=== PATIENT | female | born 1990 | race Caucasian/White ===

== ENCOUNTER 2021-09-13 10:42 | Inpatient (IN) ==
[2021-09-13] MEDS ORDERED: PENICILLIN G POTASSIUM 6 MU in DEXTROSE 5% 250 ML IV STA (11:51)
[2021-09-13] MEDS ORDERED: OXYTOCIN 30 UNITS/500 ML BAG IV PRN ×2 (11:51→21:40)
[2021-09-13 12:13] LABS: Hematocrit (blood only) 35.2 % (37-47); Hemoglobin 11.4 g/dL (12.0-16.0); Mean Corpuscular Hemoglobin 25.7 pg (25-34); Mean Corpuscular Hgb Conc 32.4 g/dL (32-36); Mean Corpuscular Volume 79.3 fL (80-100); Nucleated RBC # (auto) 0.02 K/uL (0-0); Nucleated RBC % (auto) 0.1 %; Platelet Count 281 K/uL (130-400); RDW Standard Deviation 51.6 fL (36.4-46.3); Red Blood Count 4.44 M/uL (4.2-5.4); White Blood Count 13.41 K/uL (4.8-10.8)
[2021-09-13] MEDS: LACTATED RINGER'S 1,000 ML IV PRN ×2 (17:38→18:56)
[2021-09-13] MEDS ORDERED: BUTORPHANOL TARTRATE 1 MG/ML VIAL IV ONE (18:00)
[2021-09-13] MEDS ORDERED: BUTORPHANOL TARTRATE 1 MG/ML VIAL ONE (18:05)
[2021-09-13] MEDS ORDERED: NALOXONE HCL 1 MG in SODIUM CHLORIDE 0.9% 1000ML 1,000 ML IV PRN (18:22)
[2021-09-13] MEDS ORDERED: ePHEDrine sulfate 50 MG/ML AMP IV PRN (18:22)
[2021-09-13] MEDS ORDERED: NALOXONE HCL 0.4 MG/1 ML VIAL/CARP IV PRN (18:22)
[2021-09-13] MEDS ORDERED: ONDANSETRON INJ 2 MG/ML 2 ML VIAL IV PRN ×2 (18:22→21:40)
[2021-09-13] MEDS ORDERED: diphenhydrAMINE 50 MG/ML VIAL IV PRN (18:22)
[2021-09-13] MEDS ORDERED: NALBUPHINE HCL INJ 10 MG/ML AMP IV PRN (18:22)
--- NOTE | 2021-09-13 18:24 | Anesthesiology Consultation ---
Date of Service September 13, 2021 Assessment & Plan (1) Encounter for pre-operative examination: Chart Review Chart Review: Patient NOT seen in Pre Admission Testing and Acceptable Risk for Labor Epidural Consults Requested none History Height/Weight Height: 5 ft 6 in Weight: 87.5 kg Allergies Allergy/AdvReac Type Severity Reaction Status Date / Time No Known Allergies Allergy Mild Verified 09/13/21 12:51 Medications Home Medications Medication Instructions Recorded Confirmed Last Taken acetaminophen 500 mg tablet 1,000 mg PO Q6H PRN 08/14/21 09/13/21 08/14/21 10:00 (Tylenol Extra Strength) 1000 mg ascorbic acid (vitamin C) 250 mg 250 mg PO QAM 08/14/21 09/13/21 2 Days Ago chewable tablet ~09/11/21 ferrous sulfate 325 mg (65 mg 325 mg PO QAM 08/14/21 09/13/21 09/11/21 21:00 iron) tablet #2 1 mg PO HS 09/13/21 09/13/21 09/11/21 21:00 Active Medications Generic Name Dose Route Start Last Admin Trade Name Freq PRN Reason Stop Dose Admin Lactated Ringer's 1,000 mls @ 125 mls/hr 09/13/21 11:51 09/13/21 17:51 Lr IV 09/15/21 11:50 999 mls/hr .Q8H PRN Infusion L&D Protocol Protocol Past Medical History Medical History Anemia No significant medical problems Past Family History Family History Grandfather (Paternal) Leukemia Grandmother (Maternal) Cancer Grandfather (Maternal) Cancer Past Surgical History Surgical History No history of previous surgery Social History Smoking Status: Never smoker Hx Alcohol Use: Yes Hx Substance Use: No Physical Exam Vital Signs Last Vital Signs Temp 36.5 C 09/13/21 18:10 Pulse 109 H 09/13/21 14:09 Resp 18 09/13/21 18:10 BP 124/78 09/13/21 14:09 Testing Laboratory Results 09/13/21 12:03
--- NOTE | 2021-09-13 19:02 | History & Physical Report ---
Date of Service September 13, 2021 Assessment & Plan (1) : Plan: Planning for epidural anticipate normal delivery Admission and Anticipated Discharge Date Admission Date: September 13, 2021 History of Present Illness Chief Complaint: Spontaneous rupture of membranes at term in labor Primary Care Provider: LINDA PCP 31 F P0000 at 40.6 weeks admitted with SROM and early labor. GBS is positive. Covid was positive 08/24/21. Allergies Allergy/AdvReac Type Severity Reaction Status Date / Time No Known Allergies Allergy Mild Verified 09/13/21 12:51 Home Medications Medication Instructions Recorded Confirmed Type acetaminophen 500 mg tablet 1,000 mg PO Q6H PRN 08/14/21 09/13/21 History (Tylenol Extra Strength) ascorbic acid (vitamin C) 250 mg 250 mg PO QAM 08/14/21 09/13/21 History chewable tablet ferrous sulfate 325 mg (65 mg 325 mg PO QAM 08/14/21 09/13/21 History iron) tablet #2 1 mg PO HS 09/13/21 09/13/21 History Patient History Medical History Anemia No significant medical problems Surgical History No history of previous surgery Family History Grandfather (Paternal) Leukemia Grandmother (Maternal) Cancer Grandfather (Maternal) Cancer Social History Smoking Status: Never smoker Hx Alcohol Use: Yes Hx Substance Use: No Preferred Language: Malay Communication Ability: Effective Visual Impairment: No Limitations Hearing Ability: Normal 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 Beliefs That Will Affect Care: None marital status: Current Living Situation: Spouse Current Living Situation Comment: Nik Other Information That Helps Us Care for You: No Feels Safe at Home: Yes Safety Concerns: Feels Safe At This Time Assistive Devices: None 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 Review of Systems All systems reviewed & are unremarkable except as noted in HPI & below Physical Exam Constitutional: WD/WN, vitals as above Eyes: PERRL, conjunctivae normal, anicteric sclerae Respiratory: normal respiratory effort, lungs clear to auscultation Cardiovascular: RRR, no murmur, no edema Skin: no rashes, warm and dry Neurologic: patellar DTR's 2+ bilat, sensation intact Psychiatric: A+Ox3, euthymic affect Genitourinary: Manual OB Exam: + cervical dilation 3 cm, + cervical effacement 70% and + station -2 OB Exam Monitor Tracing: + external FHT monitor used, + external uterine monitor used, + category I and + normal FHT variability Results & Data ([facility]) Vital Signs (Past 12 Hours) Vital Signs Temp Pulse Resp BP 09/13/21 18:10 36.5 C 18 09/13/21 16:00 36.8 C 18 09/13/21 14:09 36.5 C 109 H 20 124/78 09/13/21 11:04 115 H 135/88 09/13/21 10:53 36.5 C 118 H 18 144/95 H Laboratory Results Laboratory Results - last 72 hr 09/13/21 12:03 WBC 13.41 H RBC 4.44 Hgb 11.4 L Hct 35.2 L MCV 79.3 L MCH 25.7 MCHC 32.4 RDW Std Deviation 51.6 H RDW Coeff of Kimmy 18.0 H Plt Count 281 MPV 10.0 Absolute Nucleated RBC 0.02 H Nucleated RBC % (auto) 0.1
[2021-09-13] MEDS ORDERED: SODIUM CHLORIDE 0.9% INJ 10 ML VIAL ONE (19:25)
[2021-09-13] MEDS ORDERED: ePHEDrine sulfate 50 MG/ML AMP ONE (19:25)
[2021-09-13] MEDS ORDERED: fentaNYL 2MCG/ML ROPIVACAINE 1.25MG/ML 100 ML BAG EPI ONE (19:26)
[2021-09-13] MEDS ORDERED: fentaNYL citrate 100 MCG/2 ML VIAL ONE (19:26)
[2021-09-13] MEDS ORDERED: BUPIVACAINE 0.25% 30 ML VIAL ONE (19:26)
[2021-09-13] MEDS: fentaNYL 2MCG/ML ROPIVACAINE 1.25MG/ML 100 ML BAG EPI PRN (19:26)
[2021-09-13] MEDS: PENICILLIN G POTASSIUM 3 MU in DEXTROSE 5% 100 ML IV PRN (22:07)
[2021-09-14] MEDS: PENICILLIN G POTASSIUM 3 MU in DEXTROSE 5% 100 ML IV PRN ×3 (02:12→11:20)
[2021-09-14] MEDS: LACTATED RINGER'S 1,000 ML IV PRN ×3 (03:00→12:32)
[2021-09-14] MEDS: fentaNYL 2MCG/ML ROPIVACAINE 1.25MG/ML 100 ML BAG EPI PRN ×2 (04:16→10:04)
--- NOTE | 2021-09-14 06:59 | Labor Progress Brief Note ---
Date of Service September 14, 2021 Assessment & Plan Admission and Anticipated Discharge Date Admission Date: September 13, 2021 Physical Exam Genitourinary: Manual OB Exam: + cervical dilation 8 cm and 9 cm, + cervical effacement 100%, + station 0 and + amniotic fluid clear OB Exam Monitor Tracing: + external FHT monitor used, + external uterine monitor used, + category I and + normal FHT variability Results & Data ([facility]) Vital Signs (Past 12 Hours) Vital Signs Temp Pulse Resp BP Pulse Ox 09/14/21 06:56 130 H 93 09/14/21 06:55 127 H 120/78 09/14/21 06:53 115 H 94 09/14/21 06:48 116 H 98 09/14/21 06:43 107 H 97 09/14/21 06:40 114 H 109/59 L 09/14/21 06:39 114 H 93 09/14/21 06:38 107 H 95 09/14/21 06:33 108 H 97 09/14/21 06:28 112 H 98 09/14/21 06:24 102 H 113/60 09/14/21 06:23 106 H 97 09/14/21 06:18 126 H 95 09/14/21 06:15 123 H 92 09/14/21 06:13 134 H 93 09/14/21 06:08 117 H 133/79 94 09/14/21 06:04 95 H 92 09/14/21 06:03 105 H 94 09/14/21 05:58 94 H 92 09/14/21 05:53 100 H 121/69 92 09/14/21 05:48 98 H 93 09/14/21 05:43 93 H 92 09/14/21 05:39 109 H 94 09/14/21 05:38 109 H 115/67 95 09/14/21 05:33 101 H 93 09/14/21 05:32 18 09/14/21 05:28 111 H 93 09/14/21 05:24 94 H 122/72 93 09/14/21 05:23 94 H 93 09/14/21 05:18 112 H 96 09/14/21 05:13 120 H 95 09/14/21 05:10 116 H 110/60 09/14/21 05:08 124 H 90 09/14/21 05:03 125 H 92 09/14/21 05:01 120 H 93 09/14/21 04:58 124 H 94 09/14/21 04:55 131 H 18 94 09/14/21 04:53 116 H 130/67 94 09/14/21 04:51 127 H 115/64 09/14/21 04:50 125 H 94 09/14/21 04:49 126 H 125/68 09/14/21 04:48 131 H 93 09/14/21 04:47 133 H 115/59 L 09/14/21 04:45 127 H 153/81 H 09/14/21 04:43 130 H 150/85 H 93 09/14/21 04:41 120 H 151/84 H 09/14/21 04:40 132 H 94 09/14/21 04:39 133 H 146/83 H 09/14/21 04:38 124 H 92 09/14/21 04:37 122 H 151/81 H 09/14/21 04:35 121 H 139/74 09/14/21 04:33 120 H 151/83 H 92 09/14/21 04:28 123 H 94 09/14/21 04:25 122 H 148/77 H 09/14/21 04:23 37.2 C 127 H 18 94 09/14/21 04:22 118 H 94 09/14/21 04:18 125 H 93 09/14/21 04:13 124 H 93 09/14/21 04:11 129 H 148/87 H 09/14/21 04:08 126 H 96 09/14/21 04:03 122 H 92 09/14/21 04:02 132 H 94 09/14/21 03:58 106 H 93 09/14/21 03:57 107 H 94 09/14/21 03:56 107 H 135/82 09/14/21 03:53 104 H 93 09/14/21 03:48 112 H 93 09/14/21 03:43 104 H 93 09/14/21 03:40 111 H 132/83 09/14/21 03:38 101 H 92 09/14/21 03:33 115 H 93 09/14/21 03:28 106 H 93 09/14/21 03:25 115 H 129/72 09/14/21 03:23 114 H 92 09/14/21 03:18 119 H 92 09/14/21 03:13 116 H 96 09/14/21 03:12 107 H 94 09/14/21 03:10 115 H 135/82 09/14/21 03:08 133 H 94 09/14/21 03:07 138 H 93 09/14/21 03:03 106 H 92 09/14/21 02:58 104 H 95 09/14/21 02:56 108 H 137/80 09/14/21 02:53 129 H 95 09/14/21 02:50 131 H 92 09/14/21 02:48 107 H 96 09/14/21 02:43 116 H 96 09/14/21 02:40 121 H 137/73 09/14/21 02:39 123 H 94 09/14/21 02:38 124 H 94 09/14/21 02:33 133 H 94 09/14/21 02:30 37.0 C 18 09/14/21 02:28 94 H 96 09/14/21 02:26 93 H 120/60 09/14/21 02:23 108 H 97 09/14/21 02:19 99 H 94 09/14/21 02:18 101 H 95 09/14/21 02:13 115 H 96 09/14/21 02:11 130 H 120/59 L 09/14/21 02:08 101 H 96 09/14/21 02:03 110 H 96 09/14/21 01:58 102 H 96 09/14/21 01:55 116 H 119/69 09/14/21 01:53 109 H 98 09/14/21 01:48 123 H 95 09/14/21 01:43 141 H 95 09/14/21 01:41 110 H 137/66 09/14/21 01:39 114 H 94 09/14/21 01:38 108 H 95 09/14/21 01:33 122 H 100 09/14/21 01:29 18 09/14/21 01:28 118 H 100 09/14/21 01:25 109 H 122/64 09/14/21 01:23 114 H 96 09/14/21 01:18 103 H 98 09/14/21 01:16 104 H 94 09/14/21 01:13 110 H 91 09/14/21 01:11 110 H 94 09/14/21 01:10 96 H 121/62 09/14/21 01:08 100 H 99 09/14/21 01:03 108 H 95 09/14/21 00:58 99 H 96 09/14/21 00:57 107 H 94 09/14/21 00:55 36.7 C 93 H 18 133/74 09/14/21 00:53 107 H 94 09/14/21 00:51 104 H 92 09/14/21 00:48 87 92 09/14/21 00:43 88 92 09/14/21 00:41 86 125/73 09/14/21 00:38 94 H 92 09/14/21 00:33 91 H 92 09/14/21 00:28 87 92 09/14/21 00:25 100 H 121/75 09/14/21 00:23 88 92 09/14/21 00:18 98 H 93 09/14/21 00:17 107 H 92 09/14/21 00:13 96 H 91 09/14/21 00:10 98 H 134/82 09/14/21 00:08 92 H 92 09/14/21 00:07 105 H 94 09/14/21 00:03 96 H 93 09/13/21 23:59 108 H 93 09/13/21 23:58 104 H 95 09/13/21 23:56 93 H 132/80 09/13/21 23:53 96 H 91 09/13/21 23:48 90 91 09/13/21 23:43 100 H 93 09/13/21 23:40 100 H 135/84 09/13/21 23:38 103 H 94 09/13/21 23:37 97 H 94 09/13/21 23:33 86 93 09/13/21 23:31 96 H 94 09/13/21 23:29 18 09/13/21 23:28 90 91 09/13/21 23:25 100 H 125/75 09/13/21 23:23 86 94 09/13/21 23:22 86 94 09/13/21 23:18 88 93 09/13/21 23:13 82 93 09/13/21 23:10 89 129/76 09/13/21 23:08 83 93 09/13/21 23:03 87 92 09/13/21 22:58 91 H 92 09/13/21 22:56 37.2 C 108 H 18 92 09/13/21 22:55 104 H 124/72 09/13/21 22:53 88 93 09/13/21 22:48 97 H 93 09/13/21 22:43 94 H 93 09/13/21 22:41 90 129/77 09/13/21 22:38 100 H 93 09/13/21 22:36 102 H 94 09/13/21 22:33 101 H 94 09/13/21 22:31 98 H 94 09/13/21 22:28 103 H 93 09/13/21 22:25 109 H 128/86 94 09/13/21 22:23 108 H 94 09/13/21 22:20 18 09/13/21 22:18 110 H 94 09/13/21 22:13 94 H 94 09/13/21 22:12 88 128/75 09/13/21 22:10 95 H 133/86 09/13/21 22:08 104 H 93 09/13/21 22:07 95 H 94 09/13/21 22:03 91 H 93 09/13/21 22:00 107 H 93 09/13/21 21:58 115 H 92 09/13/21 21:56 122 H 129/74 09/13/21 21:53 111 H 94 09/13/21 21:48 109 H 96 09/13/21 21:47 112 H 94 09/13/21 21:43 120 H 94 09/13/21 21:42 134 H 94 09/13/21 21:41 131 H 151/96 H 09/13/21 21:38 110 H 93 09/13/21 21:36 91 H 94 09/13/21 21:33 99 H 95 09/13/21 21:30 85 94 09/13/21 21:28 104 H 95 09/13/21 21:25 90 118/71 09/13/21 21:23 87 93 09/13/21 21:18 37.0 C 84 18 93 09/13/21 21:17 86 94 09/13/21 21:13 97 H 93 09/13/21 21:11 93 H 126/73 09/13/21 21:10 104 H 94 09/13/21 21:08 106 H 96 09/13/21 21:03 92 H 95 09/13/21 21:01 18 09/13/21 20:58 109 H 96 09/13/21 20:56 118 H 93 09/13/21 20:55 89 137/79 09/13/21 20:53 101 H 96 09/13/21 20:48 108 H 94 09/13/21 20:43 117 H 96 09/13/21 20:40 122 H 141/80 H 09/13/21 20:38 125 H 99 09/13/21 20:33 97 H 99 09/13/21 20:30 115 H 18 93 09/13/21 20:28 94 H 99 09/13/21 20:25 110 H 119/74 09/13/21 20:23 96 H 99 09/13/21 20:20 96 H 94 09/13/21 20:18 115 H 97 09/13/21 20:15 105 H 87 L 09/13/21 20:13 112 H 99 09/13/21 20:12 95 H 110/70 09/13/21 20:10 93 H 90 09/13/21 20:08 89 97 09/13/21 20:03 105 H 96 09/13/21 20:00 102 H 91 09/13/21 19:58 98 H 96 09/13/21 19:53 111 H 117/73 92 09/13/21 19:52 106 H 121/86 09/13/21 19:49 88 121/72 09/13/21 19:48 105 H 94 09/13/21 19:47 113 H 117/70 94 09/13/21 19:45 88 18 114/71 09/13/21 19:43 117 H 107/65 97 09/13/21 19:42 114 H 105/71 09/13/21 19:40 117 H 18 94 09/13/21 19:39 98 H 117/78 09/13/21 19:38 112 H 96 09/13/21 19:37 109 H 117/73 09/13/21 19:36 96 H 118/71 09/13/21 19:35 102 H 18 93 09/13/21 19:34 96 H 103/56 L 09/13/21 19:33 102 H 94 09/13/21 19:31 113 H 111/62 09/13/21 19:30 112 H 18 83/45 L 93 09/13/21 19:28 127 H 102/53 L 97 09/13/21 19:26 112 H 140/89 09/13/21 19:24 104 H 129/80 09/13/21 19:23 105 H 97 09/13/21 19:18 123 H 98 09/13/21 19:13 120 H 97 09/13/21 19:09 36.5 C 118 H 18 92 09/13/21 19:08 107 H 96 09/13/21 19:03 138 H 96
--- NOTE | 2021-09-14 07:51 | Obstetrical Progress Note ---
Date of Service September 14, 2021 Assessment & Plan Admission and Anticipated Discharge Date Admission Date: September 13, 2021 Subjective Patient is seen and examined. I reviewed her medical records from office and confirmed with her. She is a 31-year-old at 41 weeks of gestation who was scheduled for induction of labor for today but presented to labor and delivery yesterday with spontaneous rupture of membranes. She was started on Pitocin and received epidural for pain. Her has been uncomplicated except she had COVID 19 about 4 weeks ago recovered well. She is GBS positive. She denies any other medical problems, denies smoking, alcohol or drug use. She denies history of STDs, no history of herpes, chlamydia, gonorrhea. She has been feeling painful for the last half an hour or so and epidural push button has not helped. I checked her her cervix is 8 cm dilated, 90% effaced, 0 station. heart rate category 1, toco registered 3 contractions [id number]. We decrease Pitocin from 8 to 4 mIU/min. Continue to monitor closely and consult anesthesia for pain control. Results & Data ([facility]) Vital Signs (Past 12 Hours) Vital Signs Temp Pulse Resp BP Pulse Ox 09/14/21 07:43 129 H 92 09/14/21 07:39 133 H 144/66 H 09/14/21 07:38 129 H 93 09/14/21 07:37 118 H 93 09/14/21 07:33 142 H 94 09/14/21 07:28 120 H 95 09/14/21 07:25 140 H 94 09/14/21 07:23 130 H 96 09/14/21 07:20 120 H 94 09/14/21 07:18 117 H 94 09/14/21 07:15 114 H 93 09/14/21 07:13 111 H 95 09/14/21 07:10 108 H 108/55 L 09/14/21 07:08 111 H 94 09/14/21 07:03 113 H 96 09/14/21 07:00 36.7 C 18 09/14/21 06:58 116 H 98 09/14/21 06:56 130 H 93 09/14/21 06:55 127 H 120/78 09/14/21 06:53 115 H 94 09/14/21 06:48 116 H 98 09/14/21 06:43 107 H 97 09/14/21 06:40 114 H 109/59 L 09/14/21 06:39 114 H 93 09/14/21 06:38 107 H 95 09/14/21 06:33 108 H 97 09/14/21 06:28 112 H 98 09/14/21 06:24 102 H 113/60 09/14/21 06:23 106 H 97 09/14/21 06:18 126 H 95 09/14/21 06:15 123 H 92 09/14/21 06:13 134 H 93 09/14/21 06:08 117 H 133/79 94 09/14/21 06:04 95 H 92 09/14/21 06:03 105 H 94 09/14/21 05:58 94 H 92 09/14/21 05:53 100 H 121/69 92 09/14/21 05:48 98 H 93 09/14/21 05:43 93 H 92 09/14/21 05:39 109 H 94 09/14/21 05:38 109 H 115/67 95 09/14/21 05:33 101 H 93 09/14/21 05:32 18 09/14/21 05:28 111 H 93 09/14/21 05:24 94 H 122/72 93 09/14/21 05:23 94 H 93 09/14/21 05:18 112 H 96 09/14/21 05:13 120 H 95 09/14/21 05:10 116 H 110/60 09/14/21 05:08 124 H 90 09/14/21 05:03 125 H 92 09/14/21 05:01 120 H 93 09/14/21 04:58 124 H 94 09/14/21 04:55 131 H 18 94 09/14/21 04:53 116 H 130/67 94 09/14/21 04:51 127 H 115/64 09/14/21 04:50 125 H 94 09/14/21 04:49 126 H 125/68 09/14/21 04:48 131 H 93 09/14/21 04:47 133 H 115/59 L 09/14/21 04:45 127 H 153/81 H 09/14/21 04:43 130 H 150/85 H 93 09/14/21 04:41 120 H 151/84 H 09/14/21 04:40 132 H 94 09/14/21 04:39 133 H 146/83 H 09/14/21 04:38 124 H 92 09/14/21 04:37 122 H 151/81 H 09/14/21 04:35 121 H 139/74 09/14/21 04:33 120 H 151/83 H 92 09/14/21 04:28 123 H 94 09/14/21 04:25 122 H 148/77 H 09/14/21 04:23 37.2 C 127 H 18 94 09/14/21 04:22 118 H 94 09/14/21 04:18 125 H 93 09/14/21 04:13 124 H 93 09/14/21 04:11 129 H 148/87 H 09/14/21 04:08 126 H 96 09/14/21 04:03 122 H 92 09/14/21 04:02 132 H 94 09/14/21 03:58 106 H 93 09/14/21 03:57 107 H 94 09/14/21 03:56 107 H 135/82 09/14/21 03:53 104 H 93 09/14/21 03:48 112 H 93 09/14/21 03:43 104 H 93 09/14/21 03:40 111 H 132/83 09/14/21 03:38 101 H 92 09/14/21 03:33 115 H 93 09/14/21 03:28 106 H 93 09/14/21 03:25 115 H 129/72 09/14/21 03:23 114 H 92 09/14/21 03:18 119 H 92 09/14/21 03:13 116 H 96 09/14/21 03:12 107 H 94 09/14/21 03:10 115 H 135/82 09/14/21 03:08 133 H 94 09/14/21 03:07 138 H 93 09/14/21 03:03 106 H 92 09/14/21 02:58 104 H 95 09/14/21 02:56 108 H 137/80 09/14/21 02:53 129 H 95 09/14/21 02:50 131 H 92 09/14/21 02:48 107 H 96 09/14/21 02:43 116 H 96 09/14/21 02:40 121 H 137/73 09/14/21 02:39 123 H 94 09/14/21 02:38 124 H 94 09/14/21 02:33 133 H 94 09/14/21 02:30 37.0 C 18 09/14/21 02:28 94 H 96 09/14/21 02:26 93 H 120/60 09/14/21 02:23 108 H 97 09/14/21 02:19 99 H 94 09/14/21 02:18 101 H 95 09/14/21 02:13 115 H 96 09/14/21 02:11 130 H 120/59 L 09/14/21 02:08 101 H 96 09/14/21 02:03 110 H 96 09/14/21 01:58 102 H 96 09/14/21 01:55 116 H 119/69 09/14/21 01:53 109 H 98 09/14/21 01:48 123 H 95 09/14/21 01:43 141 H 95 09/14/21 01:41 110 H 137/66 09/14/21 01:39 114 H 94 09/14/21 01:38 108 H 95 09/14/21 01:33 122 H 100 09/14/21 01:29 18 09/14/21 01:28 118 H 100 09/14/21 01:25 109 H 122/64 09/14/21 01:23 114 H 96 09/14/21 01:18 103 H 98 09/14/21 01:16 104 H 94 09/14/21 01:13 110 H 91 09/14/21 01:11 110 H 94 09/14/21 01:10 96 H 121/62 09/14/21 01:08 100 H 99 09/14/21 01:03 108 H 95 09/14/21 00:58 99 H 96 09/14/21 00:57 107 H 94 09/14/21 00:55 36.7 C 93 H 18 133/74 09/14/21 00:53 107 H 94 09/14/21 00:51 104 H 92 09/14/21 00:48 87 92 09/14/21 00:43 88 92 09/14/21 00:41 86 125/73 09/14/21 00:38 94 H 92 09/14/21 00:33 91 H 92 09/14/21 00:28 87 92 09/14/21 00:25 100 H 121/75 09/14/21 00:23 88 92 09/14/21 00:18 98 H 93 09/14/21 00:17 107 H 92 09/14/21 00:13 96 H 91 09/14/21 00:10 98 H 134/82 09/14/21 00:08 92 H 92 09/14/21 00:07 105 H 94 09/14/21 00:03 96 H 93 09/13/21 23:59 108 H 93 09/13/21 23:58 104 H 95 09/13/21 23:56 93 H 132/80 09/13/21 23:53 96 H 91 09/13/21 23:48 90 91 09/13/21 23:43 100 H 93 09/13/21 23:40 100 H 135/84 09/13/21 23:38 103 H 94 09/13/21 23:37 97 H 94 09/13/21 23:33 86 93 09/13/21 23:31 96 H 94 09/13/21 23:29 18 09/13/21 23:28 90 91 09/13/21 23:25 100 H 125/75 09/13/21 23:23 86 94 09/13/21 23:22 86 94 09/13/21 23:18 88 93 09/13/21 23:13 82 93 09/13/21 23:10 89 129/76 09/13/21 23:08 83 93 09/13/21 23:03 87 92 09/13/21 22:58 91 H 92 09/13/21 22:56 37.2 C 108 H 18 92 09/13/21 22:55 104 H 124/72 09/13/21 22:53 88 93 09/13/21 22:48 97 H 93 09/13/21 22:43 94 H 93 09/13/21 22:41 90 129/77 09/13/21 22:38 100 H 93 09/13/21 22:36 102 H 94 09/13/21 22:33 101 H 94 09/13/21 22:31 98 H 94 09/13/21 22:28 103 H 93 09/13/21 22:25 109 H 128/86 94 09/13/21 22:23 108 H 94 09/13/21 22:20 18 09/13/21 22:18 110 H 94 09/13/21 22:13 94 H 94 09/13/21 22:12 88 128/75 09/13/21 22:10 95 H 133/86 09/13/21 22:08 104 H 93 09/13/21 22:07 95 H 94 09/13/21 22:03 91 H 93 09/13/21 22:00 107 H 93 09/13/21 21:58 115 H 92 09/13/21 21:56 122 H 129/74 09/13/21 21:53 111 H 94 09/13/21 21:48 109 H 96 09/13/21 21:47 112 H 94 09/13/21 21:43 120 H 94 09/13/21 21:42 134 H 94 09/13/21 21:41 131 H 151/96 H 09/13/21 21:38 110 H 93 09/13/21 21:36 91 H 94 09/13/21 21:33 99 H 95 09/13/21 21:30 85 94 09/13/21 21:28 104 H 95 09/13/21 21:25 90 118/71 09/13/21 21:23 87 93 09/13/21 21:18 37.0 C 84 18 93 09/13/21 21:17 86 94 09/13/21 21:13 97 H 93 09/13/21 21:11 93 H 126/73 09/13/21 21:10 104 H 94 09/13/21 21:08 106 H 96 09/13/21 21:03 92 H 95 09/13/21 21:01 18 09/13/21 20:58 109 H 96 09/13/21 20:56 118 H 93 09/13/21 20:55 89 137/79 09/13/21 20:53 101 H 96 09/13/21 20:48 108 H 94 09/13/21 20:43 117 H 96 09/13/21 20:40 122 H 141/80 H 09/13/21 20:38 125 H 99 09/13/21 20:33 97 H 99 09/13/21 20:30 115 H 18 93 09/13/21 20:28 94 H 99 09/13/21 20:25 110 H 119/74 09/13/21 20:23 96 H 99 09/13/21 20:20 96 H 94 01/16/22 20:18 115 H 97 09/13/21 20:15 105 H 87 L 09/13/21 20:13 112 H 99 09/13/21 20:12 95 H 110/70 09/13/21 20:10 93 H 90 09/13/21 20:08 89 97 09/13/21 20:03 105 H 96 09/13/21 20:00 102 H 91 09/13/21 19:58 98 H 96 09/13/21 19:53 111 H 117/73 92 09/13/21 19:52 106 H 121/86 09/13/21 19:49 88 121/72
[2021-09-14] MEDS ORDERED: Nursing to Pharmacy Communication SCH (08:00)
[2021-09-14] MEDS ORDERED: BUPIVACAINE 0.25% 30 ML VIAL ONE (08:08)
[2021-09-14] MEDS ORDERED: fentaNYL citrate 100 MCG/2 ML VIAL ONE (08:08)
--- NOTE | 2021-09-14 11:55 | Obstetrical Progress Note ---
Date of Service September 14, 2021 Assessment & Plan Admission and Anticipated Discharge Date Admission Date: September 13, 2021 Subjective Late entry from 11:20 AM. Patient is seen and examined. She received bolus from epidural and was comfortable for about 12 hours and then started to have pain again. She is tearful with contractions and feels all vaginal exam. heart rate had been category 1, Pitocin was increased to 5 but patient is refusing to increase more due to pain, Cervix is unchanged, still 8 cm, 80% effaced, and there is a swollen polyp at anterior lip at about 11 o'clock position, patient has history of cervical polyp and it seems like swollen due to labor, about 2 x centimeter in size, head is at 0 station. Cervix is unchanged since 5 AM when it was found to be 8 cm dilated, unchanged from my last exam as well. Bedside ultrasound is performed and baby is in occiput anterior position, unable to estimate weight due to had been in the pelvis and unable to measure BPD. Patient is worried about large baby and not sure she wants to try labor again. She is asking for . We discussed is a major surgery with increased risk of bleeding, infection, injury to surrounding organs, increased risk of blood clots in legs and lungs and longer recovery. I gave her the option of calling anesthesiology for repeat epidural and then increase Pitocin for trial of vaginal . Patient wants to discuss with her mom and then decide. Shins were answered. Results & Data ([facility]) Vital Signs (Past 12 Hours) Vital Signs Temp Pulse Resp BP Pulse Ox 09/14/21 11:48 126 H 100 09/14/21 11:43 122 H 100 09/14/21 11:38 118 H 113/56 L 98 09/14/21 11:33 133 H 99 09/14/21 11:28 129 H 99 09/14/21 11:26 142 H 93 09/14/21 11:23 126 H 98 09/14/21 11:22 137 H 102/53 L 09/14/21 11:21 147 H 94 09/14/21 11:18 128 H 93 09/14/21 11:16 164 H 94 09/14/21 11:13 155 H 98 09/14/21 11:10 129 H 94 09/14/21 11:08 148 H 108/54 L 91 09/14/21 11:05 129 H 93 09/14/21 11:03 139 H 94 09/14/21 10:59 137 H 93 09/14/21 10:58 150 H 91 09/14/21 10:53 137 H 94 09/14/21 10:51 126 H 108/52 L 09/14/21 10:48 139 H 94 09/14/21 10:47 137 H 93 09/14/21 10:43 122 H 92 09/14/21 10:42 129 H 94 09/14/21 10:38 125 H 113/55 L 93 09/14/21 10:36 133 H 93 09/14/21 10:33 121 H 93 09/14/21 10:28 116 H 91 09/14/21 10:23 124 H 93 09/14/21 10:21 127 H 98/50 L 09/14/21 10:18 126 H 93 09/14/21 10:16 131 H 94 09/14/21 10:13 131 H 93 09/14/21 10:10 135 H 94 09/14/21 10:08 134 H 93 09/14/21 10:06 129 H 105/57 L 09/14/21 10:03 135 H 94 09/14/21 09:59 120 H 92 09/14/21 09:58 135 H 93 09/14/21 09:53 121 H 93 09/14/21 09:51 121 H 113/56 L 09/14/21 09:48 121 H 90 09/14/21 09:43 123 H 90 09/14/21 09:38 124 H 90 09/14/21 09:37 112 H 114/58 L 09/14/21 09:33 139 H 92 09/14/21 09:28 127 H 77 L 09/14/21 09:23 132 H 91 09/14/21 09:22 131 H 96/55 L 09/14/21 09:18 125 H 91 09/14/21 09:13 134 H 92 09/14/21 09:09 134 H 94 09/14/21 09:08 138 H 105/55 L 94 09/14/21 09:03 140 H 92 09/14/21 09:02 133 H 93 09/14/21 08:58 135 H 94 09/14/21 08:53 114 H 90 09/14/21 08:52 120 H 107/54 L 09/14/21 08:48 121 H 92 09/14/21 08:43 123 H 96 09/14/21 08:38 120 H 91 09/14/21 08:37 125 H 119/70 09/14/21 08:33 128 H 91 09/14/21 08:28 129 H 91 09/14/21 08:23 128 H 90 09/14/21 08:21 144 H 126/62 09/14/21 08:19 130 H 126/63 09/14/21 08:18 130 H 143/71 H 93 09/14/21 08:15 148 H 123/65 09/14/21 08:13 139 H 167/80 H 91 09/14/21 08:12 149 H 94 09/14/21 08:10 141 H 127/64 09/14/21 08:08 134 H 93 09/14/21 08:03 147 H 96 09/14/21 08:01 133 H 93 09/14/21 07:58 130 H 93 09/14/21 07:54 125 H 136/82 94 09/14/21 07:53 135 H 93 09/14/21 07:48 121 H 92 09/14/21 07:43 129 H 92 09/14/21 07:39 133 H 144/66 H 09/14/21 07:38 129 H 93 09/14/21 07:37 118 H 93 09/14/21 07:33 142 H 94 09/14/21 07:28 120 H 95 09/14/21 07:25 140 H 94 09/14/21 07:23 130 H 96 09/14/21 07:20 120 H 94 09/14/21 07:18 117 H 94 09/14/21 07:15 114 H 93 09/14/21 07:13 111 H 95 09/14/21 07:10 108 H 108/55 L 09/14/21 07:08 111 H 94 09/14/21 07:03 113 H 96 09/14/21 07:00 36.7 C 18 09/14/21 06:58 116 H 98 09/14/21 06:56 130 H 93 09/14/21 06:55 127 H 120/78 09/14/21 06:53 115 H 94 09/14/21 06:48 116 H 98 09/14/21 06:43 107 H 97 09/14/21 06:40 114 H 109/59 L 09/14/21 06:39 114 H 93 09/14/21 06:38 107 H 95 09/14/21 06:33 108 H 97 09/14/21 06:28 112 H 98 09/14/21 06:24 102 H 113/60 09/14/21 06:23 106 H 97 09/14/21 06:18 126 H 95 09/14/21 06:15 123 H 92 09/14/21 06:13 134 H 93 09/14/21 06:08 117 H 133/79 94 09/14/21 06:04 95 H 92 09/14/21 06:03 105 H 94 09/14/21 05:58 94 H 92 09/14/21 05:53 100 H 121/69 92 09/14/21 05:48 98 H 93 09/14/21 05:43 93 H 92 09/14/21 05:39 109 H 94 09/14/21 05:38 109 H 115/67 95 09/14/21 05:33 101 H 93 09/14/21 05:32 18 09/14/21 05:28 111 H 93 09/14/21 05:24 94 H 122/72 93 09/14/21 05:23 94 H 93 09/14/21 05:18 112 H 96 09/14/21 05:13 120 H 95 09/14/21 05:10 116 H 110/60 09/14/21 05:08 124 H 90 09/14/21 05:03 125 H 92 09/14/21 05:01 120 H 93 09/14/21 04:58 124 H 94 09/14/21 04:55 131 H 18 94 09/14/21 04:53 116 H 130/67 94 09/14/21 04:51 127 H 115/64 09/14/21 04:50 125 H 94 09/14/21 04:49 126 H 125/68 09/14/21 04:48 131 H 93 09/14/21 04:47 133 H 115/59 L 09/14/21 04:45 127 H 153/81 H 09/14/21 04:43 130 H 150/85 H 93 09/14/21 04:41 120 H 151/84 H 09/14/21 04:40 132 H 94 09/14/21 04:39 133 H 146/83 H 09/14/21 04:38 124 H 92 09/14/21 04:37 122 H 151/81 H 09/14/21 04:35 121 H 139/74 09/14/21 04:33 120 H 151/83 H 92 09/14/21 04:28 123 H 94 09/14/21 04:25 122 H 148/77 H 09/14/21 04:23 37.2 C 127 H 18 94 09/14/21 04:22 118 H 94 09/14/21 04:18 125 H 93 09/14/21 04:13 124 H 93 09/14/21 04:11 129 H 148/87 H 09/14/21 04:08 126 H 96 09/14/21 04:03 122 H 92 09/14/21 04:02 132 H 94 09/14/21 03:58 106 H 93 09/14/21 03:57 107 H 94 09/14/21 03:56 107 H 135/82 09/14/21 03:53 104 H 93 09/14/21 03:48 112 H 93 09/14/21 03:43 104 H 93 09/14/21 03:40 111 H 132/83 09/14/21 03:38 101 H 92 09/14/21 03:33 115 H 93 09/14/21 03:28 106 H 93 09/14/21 03:25 115 H 129/72 09/14/21 03:23 114 H 92 09/14/21 03:18 119 H 92 09/14/21 03:13 116 H 96 09/14/21 03:12 107 H 94 09/14/21 03:10 115 H 135/82 09/14/21 03:08 133 H 94 09/14/21 03:07 138 H 93 09/14/21 03:03 106 H 92 09/14/21 02:58 104 H 95 09/14/21 02:56 108 H 137/80 09/14/21 02:53 129 H 95 09/14/21 02:50 131 H 92 09/14/21 02:48 107 H 96 09/14/21 02:43 116 H 96 09/14/21 02:40 121 H 137/73 09/14/21 02:39 123 H 94 09/14/21 02:38 124 H 94 09/14/21 02:33 133 H 94 09/14/21 02:30 37.0 C 18 09/14/21 02:28 94 H 96 09/14/21 02:26 93 H 120/60 09/14/21 02:23 108 H 97 09/14/21 02:19 99 H 94 09/14/21 02:18 101 H 95 09/14/21 02:13 115 H 96 09/14/21 02:11 130 H 120/59 L 09/14/21 02:08 101 H 96 09/14/21 02:03 110 H 96 09/14/21 01:58 102 H 96 09/14/21 01:55 116 H 119/69 09/14/21 01:53 109 H 98 09/14/21 01:48 123 H 95 09/14/21 01:43 141 H 95 09/14/21 01:41 110 H 137/66 09/14/21 01:39 114 H 94 09/14/21 01:38 108 H 95 09/14/21 01:33 122 H 100 09/14/21 01:29 18 09/14/21 01:28 118 H 100 09/14/21 01:25 109 H 122/64 09/14/21 01:23 114 H 96 09/14/21 01:18 103 H 98 09/14/21 01:16 104 H 94 09/14/21 01:13 110 H 91 09/14/21 01:11 110 H 94 09/14/21 01:10 96 H 121/62 09/14/21 01:08 100 H 99 09/14/21 01:03 108 H 95 09/14/21 00:58 99 H 96 09/14/21 00:57 107 H 94 09/14/21 00:55 36.7 C 93 H 18 133/74 09/14/21 00:53 107 H 94 09/14/21 00:51 104 H 92 09/14/21 00:48 87 92 09/14/21 00:43 88 92 09/14/21 00:41 86 125/73 09/14/21 00:38 94 H 92 09/14/21 00:33 91 H 92 09/14/21 00:28 87 92 09/14/21 00:25 100 H 121/75 09/14/21 00:23 88 92 09/14/21 00:18 98 H 93 09/14/21 00:17 107 H 92 09/14/21 00:13 96 H 91 09/14/21 00:10 98 H 134/82 09/14/21 00:08 92 H 92 09/14/21 00:07 105 H 94 09/14/21 00:03 96 H 93 09/13/21 23:59 108 H 93 09/13/21 23:58 104 H 95 09/13/21 23:56 93 H 132/80 09/13/21 23:53 96 H 91
[2021-09-14] MEDS ORDERED: AZITHROMYCIN 500 MG in DEXTROSE 5% 250 ML IV STA (12:29)
[2021-09-14] MEDS ORDERED: LACTATED RINGER'S 1,000 ML IV SCH ×3 (12:30→14:45)
[2021-09-14] MEDS ORDERED: ONDANSETRON INJ 2 MG/ML 2 ML VIAL ONE (12:34)
[2021-09-14] MEDS ORDERED: MoRPHine SULFATE PF 1 MG/ML 10 ML AMP/VIAL ONE (12:34)
[2021-09-14] MEDS ORDERED: LIDOCAINE 2%/EPINEPHRINE 1:200,000 20 ML SDV ONE (12:34)
--- NOTE | 2021-09-14 12:35 | Obstetrical Progress Note ---
Date of Service September 14, 2021 Assessment & Plan Admission and Anticipated Discharge Date Admission Date: September 13, 2021 Subjective Patient has decided for primary . She declines trial of labor with increasing oxytocin and repeating epidural. She understands the risks of surgery and signed an informed consent. All questions were answered. Plan for preop orders with SCDs, preop antibiotics with cefazolin and azithromycin, type and screen. Patient already has Garner catheter placed during labor. Results & Data ([facility]) Vital Signs (Past 12 Hours) Vital Signs Temp Pulse Resp BP Pulse Ox 09/14/21 12:28 123 H 99 09/14/21 12:26 118 H 126/71 09/14/21 12:23 118 H 98 09/14/21 12:18 114 H 97 09/14/21 12:13 112 H 99 09/14/21 12:08 120 H 99/54 L 99 09/14/21 12:03 113 H 88 L 09/14/21 11:58 109 H 100 09/14/21 11:53 113 H 110/57 L 100 09/14/21 11:48 126 H 100 09/14/21 11:43 122 H 100 09/14/21 11:38 118 H 113/56 L 98 09/14/21 11:33 133 H 99 09/14/21 11:28 129 H 99 09/14/21 11:26 142 H 93 09/14/21 11:23 126 H 98 09/14/21 11:22 137 H 102/53 L 09/14/21 11:21 147 H 94 09/14/21 11:18 128 H 93 09/14/21 11:16 164 H 94 09/14/21 11:13 155 H 98 09/14/21 11:10 129 H 94 09/14/21 11:08 148 H 108/54 L 91 09/14/21 11:05 129 H 93 09/14/21 11:03 139 H 94 09/14/21 11:00 36.8 C 18 09/14/21 10:59 137 H 93 09/14/21 10:58 150 H 91 09/14/21 10:53 137 H 94 09/14/21 10:51 126 H 108/52 L 09/14/21 10:48 139 H 94 09/14/21 10:47 137 H 93 09/14/21 10:43 122 H 92 09/14/21 10:42 129 H 94 09/14/21 10:38 125 H 113/55 L 93 09/14/21 10:36 133 H 93 09/14/21 10:33 121 H 93 09/14/21 10:28 116 H 91 09/14/21 10:23 124 H 93 09/14/21 10:21 127 H 98/50 L 09/14/21 10:18 126 H 93 09/14/21 10:16 131 H 94 09/14/21 10:13 131 H 93 09/14/21 10:10 135 H 94 09/14/21 10:08 134 H 93 09/14/21 10:06 129 H 105/57 L 09/14/21 10:03 135 H 94 09/14/21 09:59 120 H 92 09/14/21 09:58 135 H 93 09/14/21 09:53 121 H 93 09/14/21 09:51 121 H 113/56 L 09/14/21 09:48 121 H 90 09/14/21 09:43 123 H 90 09/14/21 09:38 124 H 90 09/14/21 09:37 112 H 114/58 L 09/14/21 09:33 139 H 92 09/14/21 09:28 127 H 77 L 09/14/21 09:23 132 H 91 09/14/21 09:22 131 H 96/55 L 09/14/21 09:18 125 H 91 09/14/21 09:13 134 H 92 09/14/21 09:09 134 H 94 09/14/21 09:08 138 H 105/55 L 94 09/14/21 09:03 140 H 92 09/14/21 09:02 133 H 93 09/14/21 08:58 135 H 94 09/14/21 08:53 114 H 90 09/14/21 08:52 120 H 107/54 L 09/14/21 08:48 121 H 92 09/14/21 08:43 123 H 96 09/14/21 08:38 120 H 91 09/14/21 08:37 125 H 119/70 09/14/21 08:33 128 H 91 09/14/21 08:28 129 H 91 09/14/21 08:23 128 H 90 09/14/21 08:21 144 H 126/62 09/14/21 08:19 130 H 126/63 09/14/21 08:18 130 H 143/71 H 93 09/14/21 08:15 148 H 123/65 09/14/21 08:13 139 H 167/80 H 91 09/14/21 08:12 149 H 94 09/14/21 08:10 141 H 127/64 09/14/21 08:08 134 H 93 09/14/21 08:03 147 H 96 09/14/21 08:01 133 H 93 09/14/21 07:58 130 H 93 09/14/21 07:54 125 H 136/82 94 09/14/21 07:53 135 H 93 09/14/21 07:48 121 H 92 09/14/21 07:43 129 H 92 09/14/21 07:39 133 H 144/66 H 09/14/21 07:38 129 H 93 09/14/21 07:37 118 H 93 09/14/21 07:33 142 H 94 09/14/21 07:28 120 H 95 09/14/21 07:25 140 H 94 09/14/21 07:23 130 H 96 09/14/21 07:20 120 H 94 09/14/21 07:18 117 H 94 09/14/21 07:15 114 H 93 09/14/21 07:13 111 H 95 09/14/21 07:10 108 H 108/55 L 09/14/21 07:08 111 H 94 09/14/21 07:03 113 H 96 09/14/21 07:00 36.7 C 18 09/14/21 06:58 116 H 98 09/14/21 06:56 130 H 93 09/14/21 06:55 127 H 120/78 09/14/21 06:53 115 H 94 09/14/21 06:48 116 H 98 09/14/21 06:43 107 H 97 09/14/21 06:40 114 H 109/59 L 09/14/21 06:39 114 H 93 09/14/21 06:38 107 H 95 09/14/21 06:33 108 H 97 09/14/21 06:28 112 H 98 09/14/21 06:24 102 H 113/60 09/14/21 06:23 106 H 97 09/14/21 06:18 126 H 95 09/14/21 06:15 123 H 92 09/14/21 06:13 134 H 93 09/14/21 06:08 117 H 133/79 94 09/14/21 06:04 95 H 92 09/14/21 06:03 105 H 94 09/14/21 05:58 94 H 92 09/14/21 05:53 100 H 121/69 92 09/14/21 05:48 98 H 93 09/14/21 05:43 93 H 92 09/14/21 05:39 109 H 94 09/14/21 05:38 109 H 115/67 95 09/14/21 05:33 101 H 93 09/14/21 05:32 18 09/14/21 05:28 111 H 93 09/14/21 05:24 94 H 122/72 93 09/14/21 05:23 94 H 93 09/14/21 05:18 112 H 96 09/14/21 05:13 120 H 95 09/14/21 05:10 116 H 110/60 09/14/21 05:08 124 H 90 09/14/21 05:03 125 H 92 09/14/21 05:01 120 H 93 09/14/21 04:58 124 H 94 09/14/21 04:55 131 H 18 94 09/14/21 04:53 116 H 130/67 94 09/14/21 04:51 127 H 115/64 09/14/21 04:50 125 H 94 09/14/21 04:49 126 H 125/68 09/14/21 04:48 131 H 93 09/14/21 04:47 133 H 115/59 L 09/14/21 04:45 127 H 153/81 H 09/14/21 04:43 130 H 150/85 H 93 09/14/21 04:41 120 H 151/84 H 09/14/21 04:40 132 H 94 09/14/21 04:39 133 H 146/83 H 09/14/21 04:38 124 H 92 09/14/21 04:37 122 H 151/81 H 09/14/21 04:35 121 H 139/74 09/14/21 04:33 120 H 151/83 H 92 09/14/21 04:28 123 H 94 09/14/21 04:25 122 H 148/77 H 09/14/21 04:23 37.2 C 127 H 18 94 09/14/21 04:22 118 H 94 09/14/21 04:18 125 H 93 09/14/21 04:13 124 H 93 09/14/21 04:11 129 H 148/87 H 09/14/21 04:08 126 H 96 09/14/21 04:03 122 H 92 09/14/21 04:02 132 H 94 09/14/21 03:58 106 H 93 09/14/21 03:57 107 H 94 09/14/21 03:56 107 H 135/82 09/14/21 03:53 104 H 93 09/14/21 03:48 112 H 93 09/14/21 03:43 104 H 93 09/14/21 03:40 111 H 132/83 09/14/21 03:38 101 H 92 09/14/21 03:33 115 H 93 09/14/21 03:28 106 H 93 09/14/21 03:25 115 H 129/72 09/14/21 03:23 114 H 92 09/14/21 03:18 119 H 92 09/14/21 03:13 116 H 96 09/14/21 03:12 107 H 94 09/14/21 03:10 115 H 135/82 09/14/21 03:08 133 H 94 09/14/21 03:07 138 H 93 09/14/21 03:03 106 H 92 09/14/21 02:58 104 H 95 09/14/21 02:56 108 H 137/80 09/14/21 02:53 129 H 95 09/14/21 02:50 131 H 92 09/14/21 02:48 107 H 96 09/14/21 02:43 116 H 96 09/14/21 02:40 121 H 137/73 09/14/21 02:39 123 H 94 09/14/21 02:38 124 H 94 09/14/21 02:33 133 H 94 09/14/21 02:30 37.0 C 18 09/14/21 02:28 94 H 96 09/14/21 02:26 93 H 120/60 09/14/21 02:23 108 H 97 09/14/21 02:19 99 H 94 09/14/21 02:18 101 H 95 09/14/21 02:13 115 H 96 09/14/21 02:11 130 H 120/59 L 09/14/21 02:08 101 H 96 09/14/21 02:03 110 H 96 09/14/21 01:58 102 H 96 09/14/21 01:55 116 H 119/69 09/14/21 01:53 109 H 98 09/14/21 01:48 123 H 95 09/14/21 01:43 141 H 95 09/14/21 01:41 110 H 137/66 09/14/21 01:39 114 H 94 09/14/21 01:38 108 H 95 09/14/21 01:33 122 H 100 09/14/21 01:29 18 09/14/21 01:28 118 H 100 09/14/21 01:25 109 H 122/64 09/14/21 01:23 114 H 96 09/14/21 01:18 103 H 98 09/14/21 01:16 104 H 94 09/14/21 01:13 110 H 91 09/14/21 01:11 110 H 94 09/14/21 01:10 96 H 121/62 09/14/21 01:08 100 H 99 09/14/21 01:03 108 H 95 09/14/21 00:58 99 H 96 09/14/21 00:57 107 H 94 09/14/21 00:55 36.7 C 93 H 18 133/74 09/14/21 00:53 107 H 94 09/14/21 00:51 104 H 92 09/14/21 00:48 87 92 09/14/21 00:43 88 92 09/14/21 00:41 86 125/73 09/14/21 00:38 94 H 92
[2021-09-14] MEDS ORDERED: CITRIC ACID/SODIUM CITRATE 15 ML UDC ONE (12:41)
[2021-09-14] MEDS ORDERED: CITRIC ACID/SODIUM CITRATE 15 ML UDC PO SCH (12:45)
[2021-09-14] MEDS: ceFAZolin 2000MG 2,000 MG/15 ML SYR IV SCH (12:59)
--- NOTE | 2021-09-14 13:13 | Obstetrical Progress Note ---
Date of Service September 14, 2021 Assessment & Plan Admission and Anticipated Discharge Date Admission Date: September 13, 2021 Subjective Patient is getting ready for OR. Anesthesia is at the bedside and giving posterior epidural. Vagina is washed by myself with Betadine, cervix is unchanged with swollen polyp and still 8 cm. heart rate category 1, Continue to monitor. Results & Data ([facility]) Vital Signs (Past 12 Hours) Vital Signs Temp Pulse Resp BP Pulse Ox 09/14/21 13:10 148 H 111/52 L 09/14/21 13:08 136 H 148/115 H 96 09/14/21 13:03 128 H 97 09/14/21 12:58 131 H 96 09/14/21 12:53 128 H 97 09/14/21 12:52 130 H 145/73 H 09/14/21 12:48 124 H 98 09/14/21 12:43 126 H 97 09/14/21 12:38 120 H 97 09/14/21 12:36 127 H 134/73 09/14/21 12:33 120 H 98 09/14/21 12:30 36.8 C 18 09/14/21 12:28 123 H 99 09/14/21 12:26 118 H 126/71 09/14/21 12:23 118 H 98 09/14/21 12:18 114 H 97 09/14/21 12:13 112 H 99 09/14/21 12:08 120 H 99/54 L 99 09/14/21 12:03 113 H 88 L 09/14/21 11:58 109 H 100 09/14/21 11:53 113 H 110/57 L 100 09/14/21 11:48 126 H 100 09/14/21 11:43 122 H 100 09/14/21 11:38 118 H 113/56 L 98 09/14/21 11:33 133 H 99 09/14/21 11:28 129 H 99 09/14/21 11:26 142 H 93 09/14/21 11:23 126 H 98 09/14/21 11:22 137 H 102/53 L 09/14/21 11:21 147 H 94 09/14/21 11:18 128 H 93 09/14/21 11:16 164 H 94 09/14/21 11:13 155 H 98 09/14/21 11:10 129 H 94 09/14/21 11:08 148 H 108/54 L 91 09/14/21 11:05 129 H 93 09/14/21 11:03 139 H 94 09/14/21 11:00 36.8 C 18 09/14/21 10:59 137 H 93 09/14/21 10:58 150 H 91 09/14/21 10:53 137 H 94 09/14/21 10:51 126 H 108/52 L 09/14/21 10:48 139 H 94 09/14/21 10:47 137 H 93 09/14/21 10:43 122 H 92 09/14/21 10:42 129 H 94 09/14/21 10:38 125 H 113/55 L 93 09/14/21 10:36 133 H 93 09/14/21 10:33 121 H 93 09/14/21 10:28 116 H 91 09/14/21 10:23 124 H 93 09/14/21 10:21 127 H 98/50 L 09/14/21 10:18 126 H 93 09/14/21 10:16 131 H 94 09/14/21 10:13 131 H 93 09/14/21 10:10 135 H 94 09/14/21 10:08 134 H 93 09/14/21 10:06 129 H 105/57 L 09/14/21 10:03 135 H 94 09/14/21 09:59 120 H 92 09/14/21 09:58 135 H 93 09/14/21 09:53 121 H 93 09/14/21 09:51 121 H 113/56 L 09/14/21 09:48 121 H 90 09/14/21 09:43 123 H 90 09/14/21 09:38 124 H 90 09/14/21 09:37 112 H 114/58 L 09/14/21 09:33 139 H 92 09/14/21 09:28 127 H 77 L 09/14/21 09:23 132 H 91 09/14/21 09:22 131 H 96/55 L 09/14/21 09:18 125 H 91 09/14/21 09:13 134 H 92 09/14/21 09:09 134 H 94 09/14/21 09:08 138 H 105/55 L 94 09/14/21 09:03 140 H 92 09/14/21 09:02 133 H 93 09/14/21 08:58 135 H 94 09/14/21 08:53 114 H 90 09/14/21 08:52 120 H 107/54 L 09/14/21 08:48 121 H 92 09/14/21 08:43 123 H 96 09/14/21 08:38 120 H 91 09/14/21 08:37 125 H 119/70 09/14/21 08:33 128 H 91 09/14/21 08:28 129 H 91 09/14/21 08:23 128 H 90 09/14/21 08:21 144 H 126/62 09/14/21 08:19 130 H 126/63 09/14/21 08:18 130 H 143/71 H 93 09/14/21 08:15 148 H 123/65 09/14/21 08:13 139 H 167/80 H 91 09/14/21 08:12 149 H 94 09/14/21 08:10 141 H 127/64 09/14/21 08:08 134 H 93 09/14/21 08:03 147 H 96 09/14/21 08:01 133 H 93 09/14/21 07:58 130 H 93 09/14/21 07:54 125 H 136/82 94 09/14/21 07:53 135 H 93 09/14/21 07:48 121 H 92 09/14/21 07:43 129 H 92 09/14/21 07:39 133 H 144/66 H 09/14/21 07:38 129 H 93 09/14/21 07:37 118 H 93 09/14/21 07:33 142 H 94 09/14/21 07:28 120 H 95 09/14/21 07:25 140 H 94 09/14/21 07:23 130 H 96 09/14/21 07:20 120 H 94 09/14/21 07:18 117 H 94 09/14/21 07:15 114 H 93 09/14/21 07:13 111 H 95 09/14/21 07:10 108 H 108/55 L 09/14/21 07:08 111 H 94 09/14/21 07:03 113 H 96 09/14/21 07:00 36.7 C 18 09/14/21 06:58 116 H 98 09/14/21 06:56 130 H 93 09/14/21 06:55 127 H 120/78 09/14/21 06:53 115 H 94 09/14/21 06:48 116 H 98 09/14/21 06:43 107 H 97 09/14/21 06:40 114 H 109/59 L 09/14/21 06:39 114 H 93 09/14/21 06:38 107 H 95 09/14/21 06:33 108 H 97 09/14/21 06:28 112 H 98 09/14/21 06:24 102 H 113/60 09/14/21 06:23 106 H 97 09/14/21 06:18 126 H 95 09/14/21 06:15 123 H 92 09/14/21 06:13 134 H 93 09/14/21 06:08 117 H 133/79 94 09/14/21 06:04 95 H 92 09/14/21 06:03 105 H 94 09/14/21 05:58 94 H 92 09/14/21 05:53 100 H 121/69 92 09/14/21 05:48 98 H 93 09/14/21 05:43 93 H 92 09/14/21 05:39 109 H 94 09/14/21 05:38 109 H 115/67 95 09/14/21 05:33 101 H 93 09/14/21 05:32 18 09/14/21 05:28 111 H 93 09/14/21 05:24 94 H 122/72 93 09/14/21 05:23 94 H 93 09/14/21 05:18 112 H 96 09/14/21 05:13 120 H 95 09/14/21 05:10 116 H 110/60 09/14/21 05:08 124 H 90 09/14/21 05:03 125 H 92 09/14/21 05:01 120 H 93 09/14/21 04:58 124 H 94 09/14/21 04:55 131 H 18 94 09/14/21 04:53 116 H 130/67 94 09/14/21 04:51 127 H 115/64 09/14/21 04:50 125 H 94 09/14/21 04:49 126 H 125/68 09/14/21 04:48 131 H 93 09/14/21 04:47 133 H 115/59 L 09/14/21 04:45 127 H 153/81 H 09/14/21 04:43 130 H 150/85 H 93 09/14/21 04:41 120 H 151/84 H 09/14/21 04:40 132 H 94 09/14/21 04:39 133 H 146/83 H 09/14/21 04:38 124 H 92 09/14/21 04:37 122 H 151/81 H 09/14/21 04:35 121 H 139/74 09/14/21 04:33 120 H 151/83 H 92 09/14/21 04:28 123 H 94 09/14/21 04:25 122 H 148/77 H 09/14/21 04:23 37.2 C 127 H 18 94 09/14/21 04:22 118 H 94 09/14/21 04:18 125 H 93 09/14/21 04:13 124 H 93 09/14/21 04:11 129 H 148/87 H 09/14/21 04:08 126 H 96 09/14/21 04:03 122 H 92 09/14/21 04:02 132 H 94 09/14/21 03:58 106 H 93 09/14/21 03:57 107 H 94 09/14/21 03:56 107 H 135/82 09/14/21 03:53 104 H 93 09/14/21 03:48 112 H 93 09/14/21 03:43 104 H 93 09/14/21 03:40 111 H 132/83 09/14/21 03:38 101 H 92 09/14/21 03:33 115 H 93 09/14/21 03:28 106 H 93 09/14/21 03:25 115 H 129/72 09/14/21 03:23 114 H 92 09/14/21 03:18 119 H 92 09/14/21 03:13 116 H 96 09/14/21 03:12 107 H 94 09/14/21 03:10 115 H 135/82 09/14/21 03:08 133 H 94 09/14/21 03:07 138 H 93 09/14/21 03:03 106 H 92 09/14/21 02:58 104 H 95 09/14/21 02:56 108 H 137/80 09/14/21 02:53 129 H 95 09/14/21 02:50 131 H 92 09/14/21 02:48 107 H 96 09/14/21 02:43 116 H 96 09/14/21 02:40 121 H 137/73 09/14/21 02:39 123 H 94 09/14/21 02:38 124 H 94 09/14/21 02:33 133 H 94 09/14/21 02:30 37.0 C 18 09/14/21 02:28 94 H 96 09/14/21 02:26 93 H 120/60 09/14/21 02:23 108 H 97 09/14/21 02:19 99 H 94 09/14/21 02:18 101 H 95 09/14/21 02:13 115 H 96 09/14/21 02:11 130 H 120/59 L 09/14/21 02:08 101 H 96 09/14/21 02:03 110 H 96 09/14/21 01:58 102 H 96 09/14/21 01:55 116 H 119/69 09/14/21 01:53 109 H 98 09/14/21 01:48 123 H 95 09/14/21 01:43 141 H 95 09/14/21 01:41 110 H 137/66 09/14/21 01:39 114 H 94 09/14/21 01:38 108 H 95 09/14/21 01:33 122 H 100 09/14/21 01:29 18 09/14/21 01:28 118 H 100 09/14/21 01:25 109 H 122/64 09/14/21 01:23 114 H 96 09/14/21 01:18 103 H 98 09/14/21 01:16 104 H 94 09/14/21 01:13 110 H 91
[2021-09-14] MEDS ORDERED: PROMETHAZINE HCL INJ 25 MG/ML 1 ML VIAL ONE (13:37)
[2021-09-14] MEDS ORDERED: NALOXONE HCL 1 MG in SODIUM CHLORIDE 0.9% 1000ML 1,000 ML IV PRN (13:38)
[2021-09-14] MEDS ORDERED: ePHEDrine sulfate 50 MG/ML AMP IV PRN (13:38)
[2021-09-14] MEDS ORDERED: LACTATED RINGER'S 500 ML IV PRN (13:38)
[2021-09-14] MEDS ORDERED: diphenhydrAMINE 50 MG/ML VIAL IV PRN (13:38)
[2021-09-14] MEDS ORDERED: NALOXONE HCL 0.08 MG in SYRINGE 1.8 ML IV PRN (13:38)
[2021-09-14] MEDS ORDERED: MoRPHine SULFATE PF 1 MG/ML 10 ML AMP/VIAL EPI ONE (13:38)
[2021-09-14] MEDS ORDERED: NALBUPHINE HCL INJ 10 MG/ML AMP IV PRN (13:38)
[2021-09-14] MEDS ORDERED: ACETAMINOPHEN 325 MG TAB PO PRN (13:38)
[2021-09-14] MEDS ORDERED: NALOXONE HCL 0.4 MG/1 ML VIAL/CARP IV PRN (13:38)
[2021-09-14] MEDS ORDERED: ONDANSETRON INJ 2 MG/ML 2 ML VIAL IV PRN (13:38)
[2021-09-14] MEDS ORDERED: SODIUM CHLORIDE 0.9% 1000ML 1,000 ML IV SCH (13:45)
[2021-09-14] MEDS ORDERED: DC INTRASPINAL MORPHINE SCH (13:45)
[2021-09-14] MEDS ORDERED: NO NARCOTICS OR SEDATIVES SCH (13:45)
[2021-09-14] MEDS ORDERED: OXYTOCIN 10 UNITS/ML 10ML VIAL ONE (13:45)
[2021-09-14] MEDS ORDERED: BENZOCAINE 20% AER SPR 82.5 GM CAN EXT PRN (14:32)
[2021-09-14] MEDS ORDERED: SENNA 8.6 MG TAB PO PRN (14:32)
[2021-09-14] MEDS ORDERED: HYDROCORTISONE ACETATE 25 MG SUPP PR PRN (14:32)
[2021-09-14] MEDS ORDERED: SUPERCREAM 0.870% 15 GM JAR EXT PRN (14:32)
[2021-09-14] MEDS ORDERED: DIPHTHERIA/TETANUS/PERTUSSIS 0.5 ML SYR/VIAL IM ONE (14:32)
[2021-09-14] MEDS ORDERED: MEASLES, MUMPS & RUBELLA VIRUS VIAL SQ ONE (14:32)
[2021-09-14] MEDS ORDERED: MAGNESIUM HYDROXIDE SUSP 30 ML UDC PO PRN (14:32)
--- NOTE | 2021-09-14 14:45 | Post Operative Brief Note ---
Immediate Post Op Note v1 Date of Surgery September 14, 2021 Pre & Post Diagnosis Operation Date: 09/14/21 13:00 Pre-Op Diagnosis: Arrest of Dilatation; Active labor;Cervical Polyp Post-Op Diagnosis: Same; Delivery of a live male child at 1339 ( [facility]) I identified the patient and participated in the time-out.: Yes Procedure Operation Date: 09/14/21 13:00 Actual Procedures p Section in LD(Bilateral) - Saskia Sorto MD Surgeon Saskia Sorto MD Furniture Dipper GENESIS Headley Estimated Blood Loss 500 Findings Consistent with Post-Op Diagnosis Drains Garner Catheter Anesthesia Type Labor Epidural Complications none Disposition Accompanied Patient To Recovery: Yes
--- NOTE | 2021-09-14 14:45 | Anesthesia Procedure Note ---
Date of Service September 14, 2021 Anesthesia Post Epidural Note Vital Signs Vital Signs: Temp Pulse Resp BP Pulse Ox 98.2 F 121 H 18 111/57 L 100 09/14/21 12:30 09/14/21 14:43 09/14/21 13:00 09/14/21 14:42 09/14/21 14:43 Notes Mental Status: alert / awake / arousable and participated in evaluation Patient Amnestic to Procedure: No Nausea / Vomiting: improving with treatment Pain: adequately controlled Airway Patency, RR, SpO2: stable & adequate BP & HR: stable & adequate Hydration State: stable & adequate Neuraxial Anesthesia: was administered and sensory block is resolving Anesthetic Complications: no major complications apparent and Pt Satisfied with anesthetic care Epidural: Removed without complications and With tip intact
[2021-09-14] MEDS ORDERED: KETOROLAC 30 MG/ML VIAL ONE (14:48)
[2021-09-14] MEDS: OXYTOCIN 20 UNITS in LACTATED RINGER'S 1,000 ML IV SCH (15:14)
--- NOTE | 2021-09-14 15:49 | Operative Report (OR) ---
DATE OF SURGERY: 09/14/2021 PREOPERATIVE DIAGNOSES: The patient is a 31-year-old 1, para 0, at 41 weeks of gestation, pr esenting to labor and delivery with spontaneous rupture of membranes on 09/13/2021, progressed to 8 c m dilatation, arrest of dilatation in active phase of labor, large cervical polyp, suspected LGA (lar ge for gestational age). POSTOPERATIVE DIAGNOSES: The patient is a 31-year-old 1, para 0, at 41 weeks of gestation, p resenting to labor and delivery with spontaneous rupture of membranes on 09/13/2021, progressed to 8 cm dilatation, arrest of dilatation in active phase of labor, large cervical polyp, suspected LGA (la rge for gestational age). PROCEDURE: Primary low transverse with Pfannenstiel skin incision and drainage of skin abs cess. SURGEON: Saskia Sorto MD. SPECIAL DELIVERY CARRIER: GENESIS Charles. ESTIMATED BLOOD LOSS: 500 mL. DRAINS: Garner catheter drained 200 mL of clear urine. ANESTHESIA: Labor epidural. COMPLICATIONS: None. FINDINGS: Baby was a viable male delivered in cephalic presentation, Apgars were 8 and 9, jean ght is pending. Maternal findings: Normal uterus, fallopian tubes, and ovaries. There was a 1 x 2 cm skin abscess 1 cm below the right incision corner. It was punctured with a needle and drained pus and sent for culture. DESCRIPTION OF PROCEDURE: The patient was taken to the operating room where epidural anesthesia was given and found to be adequate. She was placed in dorsal supine position with a leftward tilt. She was prepared and draped in the usual sterile fashion. A Pfannenstiel skin incision was made and peraza ied through to the underlying layer of fascia with the Bovie. Fascia was incised in the midline and incision was extended laterally with the help of Moran scissors. Upper aspect of the fascial incision was then grasped with 2 Alesha clamps, elevated and underlying rectus muscles were dissected off sha rply with Moran scissors. Lower aspect of the fascial incision was grasped with 2 Alesha clamps, elev ated, and underlying rectus muscles were dissected off sharply with Moran scissors. Rectus muscles we re in the midline. Peritoneum was entered bluntly with fingers. Peritoneal incision was extended superiorly and inferiorly with good visualization of the bladder. B ladder blade was inserted. Vesicouterine peritoneum was identified, grasped with pickups, entered sh arply with Metzenbaum scissors. Bladder blade was created digitally and bladder blade was reinserted . Lower uterine segment was incised in transverse fashion in a smiling face fashion and membranes we re ruptured, clear fluid was obtained. Baby's head was deep in the pelvis. It was brought up to the incision and delivered without difficulty. Shoulders were delivered with minimal traction. Mouth a nd nose were suctioned. Baby was vigorously moving and crying at that point. Cord was clamped x2 an d cut at 1 minute delay and baby was handed to the waiting pediatric team with Dr. Pimentel. Cord b lood was obtained and placenta was delivered manually as intact and complete. Uterus was exteriorized and cleared of all clots and debris. Uterine incision was repaired with 0 Vi cryl in a running locked fashion. A second imbricating layer was placed with another 0 Vicryl in a r unning locked fashion. Excellent hemostasis was achieved. Cul-de-sac was irrigated with warm normal saline and suctioned. It appeared to be normal with normal tubes, ovaries and peritoneum and then ut erus was returned to the abdomen. Pelvis was irrigated with warm normal saline and suctioned. Incis ion was hemostatic again. Parietal peritoneum was reapproximated with 3-0 Vicryl in a running fashion. Rectus muscles were bro ught together with the same suture in a running fashion. Rectus muscles and under the fascia were he mostatic. Fascia was reapproximated with 0 Vicryl in a running fashion. Subcuticular tissue was bro ught together with 2-0 Vicryl in a running fashion. The skin was closed with 4-0 Monocryl in a subcu ticular fashion and there was a 1 x 2 cm skin abscess 1 cm below the right corner of the incision. I t was punctured with a needle, pus was obtained. It was sent for culture and drained and then it was flat. It was cleaned with Betadine and the incision was covered with Steri-Strips and then sterile dressings and no complications happened. Instrument, needle, sponge count was correct x3. I was pres ent during whole procedure. The patient was taken to recovery room in stable condition. Job ID: [id number]
[2021-09-14] MEDS ORDERED: ACETAMINOPHEN 1,000 MG/100 ML VIAL IV STA (16:50)
[2021-09-14] MEDS ORDERED: fentaNYL citrate 100 MCG/2 ML VIAL IV PRN (16:50)
[2021-09-14] MEDS: METHYLERGONOVINE MALEATE 0.2 MG TAB PO SCH ×2 (17:26→21:43)
[2021-09-14] MEDS: KETOROLAC 30 MG/ML VIAL IV PRN (17:40)
[2021-09-14] MEDS: SIMETHICONE 80 MG CHEW PO SCH ×2 (17:43→21:43)
[2021-09-14] MEDS: AMOXICILLIN/CLAVULANATE 875 MG TAB PO SCH (20:00)
[2021-09-14] MEDS: DOCUSATE SODIUM 100 MG CAP PO SCH (21:43)
[2021-09-15] MEDS: OXYTOCIN 20 UNITS in LACTATED RINGER'S 1,000 ML IV SCH (00:37)
[2021-09-15] MEDS: KETOROLAC 30 MG/ML VIAL IV PRN (04:44)
[2021-09-15 07:06] LABS: Basophils # (auto) 0.02 K/uL (0-0.2); Basophils % (auto) 0.1 %; Eosinophils # (auto) 0.05 K/uL (0-0.5); Eosinophils % (auto) 0.3 %; Hematocrit (blood only) 29.3 % (37-47); Hemoglobin 9.4 g/dL (12.0-16.0); Immature Granulocytes # (auto) 0.07 K/uL (0.00-0.02); Immature Granulocytes % (auto) 0.4 %; Lymphocytes # (auto) 1.88 K/uL (1.2-3.4); Lymphocytes % (auto) 11.1 %; Mean Corpuscular Hemoglobin 25.5 pg (25-34); Mean Corpuscular Hgb Conc 32.1 g/dL (32-36); Mean Corpuscular Volume 79.4 fL (80-100); Mean Platelet Volume 10.1 fL (7.4-10.4); Monocytes # (auto) 1.67 K/uL (0.11-0.59); Monocytes % (auto) 9.9 %; Neutrophils # (auto) 13.24 K/uL (1.4-6.5); Neutrophils % (auto) 78.2 %; Platelet Count 253 K/uL (130-400); RDW Coefficient of Variation 18.6 % (11.5-14.5); RDW Standard Deviation 54.1 fL (36.4-46.3); Red Blood Count 3.69 M/uL (4.2-5.4); White Blood Count 16.93 K/uL (4.8-10.8)
[2021-09-15] MEDS ORDERED: PROMETHAZINE HCL 25 MG in SODIUM CHLORIDE 0.9% 50 ML IV PRN (07:42)
[2021-09-15] MEDS ORDERED: diphenhydrAMINE 50 MG/ML VIAL IV PRN (07:42)
[2021-09-15] MEDS ORDERED: diphenhydrAMINE Capsule 25 MG CAP PO PRN (07:42)
[2021-09-15] MEDS ORDERED: MEPERIDINE HCL 50 MG/ML CARP IV PRN (07:42)
[2021-09-15] MEDS ORDERED: KETOROLAC 30 MG/ML VIAL IV PRN (07:42)
[2021-09-15] MEDS ORDERED: ONDANSETRON INJ 2 MG/ML 2 ML VIAL IV PRN (07:42)
[2021-09-15] MEDS: SIMETHICONE 80 MG CHEW PO SCH ×4 (08:28→20:46)
[2021-09-15] MEDS: oxyCODONE/ACETAMINOPHEN 5mg/325mg TAB PO PRN ×4 (08:29→20:50)
[2021-09-15] MEDS: AMOXICILLIN/CLAVULANATE 875 MG TAB PO SCH ×2 (08:30→16:59)
[2021-09-15] MEDS: DOCUSATE SODIUM 100 MG CAP PO SCH ×2 (08:30→20:46)
[2021-09-15] MEDS: FERROUS SULFATE 325 MG TAB PO SCH (08:31)
[2021-09-15] MEDS: METHYLERGONOVINE MALEATE 0.2 MG TAB PO SCH ×2 (08:31→14:03)
[2021-09-15] MEDS: PRENATAL VITAMIN 1 TAB PO SCH (08:32)
[2021-09-15] MEDS: ceFAZolin 2000MG 2,000 MG/15 ML SYR IV SCH (08:33)
--- NOTE | 2021-09-15 13:41 | Obstetrical Progress Note ---
Date of Service September 15, 2021 Subjective Ambulation: limited ambulation Voiding: no voiding problems Passing Gas:: Yes Diet Tolerance:: regular diet Lochia:: Small Feeding Type:: breast feeding Current Pain Level(1-10): 4 Physical Exam Constitutional WD/WN, vitals as above comfortable abdomen soft incision c/d/i no edema neg Micah's Results & Data ([facility]) Vital Signs (Past 12 Hours) Vital Signs Temp Pulse Resp BP Pulse Ox 09/15/21 11:05 37.1 C 80 22 100/61 95 09/15/21 07:15 16 94 09/15/21 07:05 36.7 C 82 16 95/53 L 95 09/15/21 06:10 18 95 09/15/21 04:40 37 C 89 18 101/65 94 09/15/21 02:25 18 91 Laboratory Results Laboratory Results - last 72 hr 09/13/21 09/13/21 09/15/21 12:03 12:03 06:27 WBC 13.41 H 16.93 H RBC 4.44 3.69 L Hgb 11.4 L 9.4 L Hct 35.2 L 29.3 L MCV 79.3 L 79.4 L MCH 25.7 25.5 MCHC 32.4 32.1 RDW Std Deviation 51.6 H 54.1 H RDW Coeff of Kimmy 18.0 H 18.6 H Plt Count 281 253 MPV 10.0 10.1 Immature Gran % (Auto) 0.4 Neut % (Auto) 78.2 Lymph % (Auto) 11.1 [place] % (Auto) 9.9 Eos % (Auto) 0.3 Baso % (Auto) 0.1 Neut # (Auto) 13.24 H Lymph # (Auto) 1.88 [place] # (Auto) 1.67 H Eos # (Auto) 0.05 Baso # (Auto) 0.02 Immature Gran # (Auto) 0.07 H Absolute Nucleated RBC 0.02 H Nucleated RBC % (auto) 0.1 Blood Type A Positive Antibody Screen NEGATIVE
[2021-09-15] MEDS: IBUPROFEN 600 MG TAB PO PRN ×2 (16:58→20:51)
[2021-09-15] MEDS ORDERED: bisacodyL 5 MG TABEC PO SCH (20:00)
[2021-09-16] MEDS: oxyCODONE/ACETAMINOPHEN 5mg/325mg TAB PO PRN ×2 (04:18→07:46)
[2021-09-16] MEDS: IBUPROFEN 600 MG TAB PO PRN ×2 (04:18→07:46)
[2021-09-16 06:30] LABS: Hematocrit (blood only) 26.4 % (37-47); Hemoglobin 8.1 g/dL (12.0-16.0)
[2021-09-16] MEDS: FERROUS SULFATE 325 MG TAB PO SCH (07:43)
[2021-09-16] MEDS: DOCUSATE SODIUM 100 MG CAP PO SCH (07:43)
[2021-09-16] MEDS: PRENATAL VITAMIN 1 TAB PO SCH (07:43)
[2021-09-16] MEDS: SIMETHICONE 80 MG CHEW PO SCH (07:43)
[2021-09-16] MEDS: AMOXICILLIN/CLAVULANATE 875 MG TAB PO SCH (07:47)
--- NOTE | 2021-09-16 09:33 | Obstetrical Progress Note ---
Date of Service September 16, 2021 Assessment & Plan (1) delivery delivered: POD #2 pt doing well d/c home with instructions Subjective Ambulation: ambulating normally Voiding: no voiding problems Passing Gas:: Yes Diet Tolerance:: clear liquids Lochia:: Small Feeding Type:: breast feeding Review of Systems All systems reviewed & are unremarkable except as noted in HPI & below Physical Exam Constitutional WD/WN, vitals as above well developed and well nourished Eyes PERRL, conjunctivae normal, anicteric sclerae ENMT external ear and nose normal, oropharynx normal Neck trachea midline, no thyromegaly Respiratory normal respiratory effort, lungs clear to auscultation Cardiovascular RRR, no murmur, no edema Chest (Breasts) normal inspection/palpation of breasts Gastrointestinal (Abdomen) normal bowel sounds, soft, nontender, no hepatosplenomegaly Musculoskeletal no cyanosis or clubbing, extremities motor strength 5/5 Skin no rashes, warm and dry + incision (Clean,dry and intact) Neurologic patellar DTR's 2+ bilat, sensation intact Psychiatric A+Ox3, euthymic affect Genitourinary normal external appearance Lymphatic no cervical or axillary lymphadenopathy Results & Data ([facility]) Vital Signs (Past 12 Hours) Vital Signs Temp Pulse Resp BP Pulse Ox 09/16/21 08:33 36.6 C 76 16 101/58 L 09/15/21 23:10 37.3 C 82 16 105/64 96
[2021-09-16] MEDS ORDERED: bisacodyL 10 MG SUPP PR PRN (14:32)
--- NOTE | 2021-09-20 15:40 | Discharge Summary (DS) ---
DATE OF ADMISSION: 09/13/2021. DATE OF DISCHARGE: 09/16/2021. CHIEF COMPLAINT: This is a 31-year-old G1, P0, with due date 09/07/2021 was scheduled for induction of labor on 09/14/2021. The patient presented to labor and delivery on 09/13/2021 with spontaneous r upture of membranes. Labor was unremarkable. Her labor stalled and eventually Pitocin was added for augmentation. The patient continued to progress and was dilated to 8 cm. At this point, there was no more dilation of labor. Decision was therefore made to perform a section. sect ion was performed without difficulty. Details of the surgery and the 's information on the [facility] records. The patient met all milestones for surgery. On postop day 1, patient was able to ambu late, tolerate p.o. food and meds, her diet was advanced and was discharged home in stable condition on 09/16/2021. PAST MEDICAL HISTORY: The patient has history of anemia. PAST SURGICAL HISTORY: The patient had no previous surgery. FAMILY HISTORY: Noncontributory. SOCIAL HISTORY: The patient is and lives with spouse. Denies tobacco, drug or alcohol use. ALLERGIES: No known drug allergies. REVIEW OF SYSTEMS: Negative except as dictated in the HPI. PHYSICAL EXAMINATION: GENERAL: Well-developed, well-nourished white female in no acute distress. VITAL SIGNS: On 09/16/2021 showed blood pressure of 101/58, pulse of 76, respiration of 16, temperat ure 36.6. HEART: S1 and S2, regular rhythm and rate. LUNGS: Clear to auscultation bilaterally. ABDOMEN: Nontender, nondistended. Incision was clean, dry and intact. EXTREMITIES: No cyanosis, clubbing or edema. CONDITION ON DISCHARGE: Stable. LABORATORY DATA: On 09/16/2021 showed a hemoglobin of 8.1, hematocrit of 26.4. OPERATIONS: Primary section. DISCHARGE DIAGNOSIS: Postop primary section. PLAN ON DISCHARGE: The patient is discharged home with instructions regarding activity, diet, and fo [facility] appointment. Job ID: [id number]
== END 2021-09-16 14:30 | disposition home or self-care (01) | DRG 787 ==
LOC: OPB 10:42 → 4S1 10:43 → 4S2 09-14 17:43